=== PATIENT | male | born 1995 | race Caucasian/White ===

== ENCOUNTER 2022-01-23 15:42 | Emergency (ER) | payer MEDICAID, OTHER ==
[~2022-01-23] VITALS: Ht 175.3 cm; Wt 106.5 kg
[2022-01-23] MEDS ORDERED: FLUORESCEIN SOD OPTH TEST STRIP OP ONE (17:15)
[2022-01-23] MEDS ORDERED: TOBR0.3S EACHEYE (17:21)
[2022-01-23 17:26] VITALS: BP 110/62
== END 2022-01-23 17:42 | disposition home or self-care (01) ==
LOC: ER 15:42
DX: S05.02XA Injury of conjunctiva and corneal abrasion without foreign body, left eye, initial encounter (principal); W22.8XXA Striking against or struck by other objects, initial encounter; Y93.89 Activity, other specified; Y92.89 Other specified places as the place of occurrence of the external cause; Y99.8 Other external cause status